=== PATIENT | female | born 1965 | race Caucasian/White ===

== ENCOUNTER 2023-05-17 17:27 | Emergency (ER) | payer BC ==
[~2023-05-17] VITALS: Ht 157.5 cm; Wt 108.8 kg
[~2023-05-17 17:27] MED LIST: FLEXERIL OR; LORTAB 5 OR; NAPROSYN500 MG OR; ZANTAC25 MG OR; no medications
[2023-05-17] MEDS ORDERED: TOPAMAX50 M1 PO (19:43)
[2023-05-17] MEDS ORDERED: PHENTERMINE H37.5 M1 PO (19:46)
[2023-05-17] MEDS ORDERED: LORTAB 1010 MG PO (20:29)
[2023-05-17] MEDS ORDERED: NAPROXEN500 MG PO (20:29)
[2023-05-17 20:46] VITALS: BP 169/84
== END 2023-05-17 21:05 | disposition home or self-care (01) | DRG 563 ==
LOC: ED 17:27
DX: S83.91XA Sprain of unspecified site of right knee, initial encounter (principal); E66.01 Morbid (severe) obesity due to excess calories; X50.0XXA Overexertion from strenuous movement or load, initial encounter; Y92.000 Kitchen of unspecified non-institutional (private) residence as the place of occurrence of the external cause

== ENCOUNTER 2024-06-15 09:49 | Emergency (ER) | payer OTHER ==
[~2024-06-15] VITALS: Ht 160 cm; Wt 74.8 kg
[~2024-06-15 09:49] MED LIST changes: +LORTAB 1010 MG PO; +NAPROXEN500 MG PO; +PHENTERMINE H37.5 M1 PO; +TOPAMAX50 M1 PO
[2024-06-15 09:56] VITALS: BP 120/70
[2024-06-15 10:01] VITALS: BP 109/60
[2024-06-15 10:15] VITALS: BP 111/69
[2024-06-15] MEDS ORDERED: Diph, Acellular Pertussis, Tet 0.5 ML/VIAL (Tdap) SDV IM ONE (10:25)
[2024-06-15 10:30] VITALS: BP 112/72
[2024-06-15 10:34] VITALS: BP 111/69
== END 2024-06-15 10:44 | disposition home or self-care (01) | DRG 605 ==
LOC: ED 09:49
PROC: 0HQFXZZ Repair Right Hand Skin, External Approach (ICD-10-PCS; principal; 2024-06-15)
DX: S61.210A Laceration without foreign body of right index finger without damage to nail, initial encounter (principal); W26.0XXA Contact with knife, initial encounter; Y93.G1 Activity, food preparation and clean up; Y92.009 Unspecified place in unspecified non-institutional (private) residence as the place of occurrence of the external cause

== ENCOUNTER 2024-08-02 18:00 | Emergency (ER) | payer OTHER ==
[~2024-08-02] VITALS: Ht 160 cm; Wt 74.8 kg
[2024-08-02 18:10] VITALS: BP 123/67
[2024-08-02 18:32] VITALS: BP 114/64
[2024-08-02 18:40] LABS: BASO% 0.4 % (0-3); EOS% 1.9 % (0-8); IMMATURE GRANULOCYTES 0.3 % (0.0-5.0); LYMPH% 27.2 % (15-41); MEAN CORPUSCULAR HGB 33.8 pG CALC (26.0-32.0); MEAN CORPUSCULAR HGB CONC 31.7 g/dL CAL (32.0-36.0); MONO% 6.9 % (2-13); NEUT# 4.77 thou/uL (2.00-7.15); NEUT% 63.3 % (42-76); RED BLOOD COUNT 2.81 mill/uL (4.20-5.60)
[2024-08-02 18:41] LABS: HEMOGLOBIN 9.5 g/dl (12.0-16.0); MEAN CELL VOLUME 106.8 fL CALC (80.0-100.0)
[2024-08-02 18:59] LABS: ALBUMIN 3.8 g/dL (3.2-5.0); CREATININE 1.1 mg/dL (0.5-1.0); POTASSIUM 3.1 mmol/l (3.5-5.1); TOTAL PROTEIN 7.1 g/dL (6.3-8.2)
[2024-08-02 19:11] LABS: BILIRUBIN, TOTAL 2.3 mg/dL (0.02-1.3)
[2024-08-02] MEDS ORDERED: POTASSIUM CHLORIDE 20 MEQ/TAB PO ONE (20:05)
[2024-08-02 20:23] VITALS: BP 114/64
== END 2024-08-02 20:23 | disposition home or self-care (01) | DRG 552 ==
LOC: ED 18:00
PROVIDERS: Family Medicine
DX: M54.2 Cervicalgia (principal); S80.211A Abrasion, right knee, initial encounter; S80.02XA Contusion of left knee, initial encounter; S80.01XA Contusion of right knee, initial encounter; E87.6 Hypokalemia; I10 Essential (primary) hypertension; G40.909 Epilepsy, unspecified, not intractable, without status epilepticus; Z96.651 Presence of right artificial knee joint; W01.0XXA Fall on same level from slipping, tripping and stumbling without subsequent striking against object, initial encounter

== ENCOUNTER 2024-12-15 19:00 | Emergency (ER) | payer OTHER ==
[~2024-12-15] VITALS: Ht 160 cm; Wt 77.0 kg
[2024-12-15] VITALS (12 sets, daily range): BP systolic 99–131; BP diastolic 46–70
[2024-12-15] MEDS ORDERED: MORPHINE SULFATE 4 MG/ML VIAL IV STA (19:41)
[2024-12-15] MEDS ORDERED: SODIUM CHLORIDE 0.9% 1,000 ML IV STA (19:41)
[2024-12-15] MEDS ORDERED: Pantoprazole Sodium 40 MG VIAL (Protonix) IV STA (19:41)
[2024-12-15] MEDS ORDERED: PROMETHAZINE HCL 25 MG/ML AMP IV ONE (19:45)
[2024-12-15] MEDS ORDERED: KETOROLAC TROMETHAMINE 30 MG/ML SDV IV ONE (19:45)
[2024-12-15 21:00] LABS: BASO% 0.3 % (0-3); EOS% 2.7 % (0-8); HEMATOCRIT 28.7 % (37.0-47.0); HEMOGLOBIN 8.8 g/dl (12.0-16.0); IMMATURE GRANULOCYTES 0.3 % (0.0-5.0); LYMPH% 24.2 % (15-41); MEAN CELL VOLUME 103.2 fL CALC (80.0-100.0); MEAN CORPUSCULAR HGB 31.7 pG CALC (26.0-32.0); MEAN CORPUSCULAR HGB CONC 30.7 g/dL CAL (32.0-36.0); MONO% 7.2 % (2-13); NEUT# 4.53 thou/uL (2.00-7.15); NEUT% 65.3 % (42-76); RED BLOOD COUNT 2.78 mill/uL (4.20-5.60); RED CELL DISTRI WIDTH 15.3 % (11.5-15.5)
[2024-12-15 21:20] LABS: BILIRUBIN, TOTAL 1.6 mg/dL (0.02-1.3); CREATININE 1.1 mg/dL (0.5-1.0); POTASSIUM 3.4 mmol/l (3.5-5.1)
[2024-12-15 21:22] LABS: TOTAL PROTEIN 5.6 g/dL (6.3-8.2)
[2024-12-15 23:06] LABS: URINE BILIRUBIN - DIPSTICK Negative (NEGATIVE); URINE BLOOD DIPSTICK Small (NEGATIVE); URINE GLUCOSE - DIPSTICK Negative (NEGATIVE); URINE KETONE Negative (NEGATIVE); URINE PH 5.5 (4.5-8.0); URINE PROTEIN - DIPSTICK Negative (NEG-TRACE); URINE SPECIFIC GRAVITY 1.015; URINE UROBILINOGEN - DIPSTICK 0.2 E.U./dL (0.2)
[2024-12-15 23:33] LABS: URINE COLOR Yellow; URINE LEUK ESTERASE Small (NEGATIVE); URINE NITRITE - DIPSTICK Negative (Negative)
[2024-12-15 23:34] LABS: URINE BACTERIA MANY hpf; URINE EPITHELIAL CELLS MODERATE EPI/hpf (0-FEW); URINE WBC 20-50 WBC/hpf (0-5)
[2024-12-15] MEDS ORDERED: BACTRIM DS1 TAB PO (23:45)
[2024-12-15] MEDS ORDERED: SULFAMETHOXAZOLE W/TRIMETHOPRI 1 COMBO TAB PO ONE (23:45)
[2024-12-15] MEDS ORDERED: TORADOL PO (23:45)
[2024-12-16 00:01] VITALS: BP 107/62
[2024-12-16 00:16] VITALS: BP 107/62
== END 2024-12-16 00:19 | disposition home or self-care (01) | DRG 313 ==
LOC: ED 19:00
PROVIDERS: Family Medicine
DX: R07.89 Other chest pain (principal); R10.12 Left upper quadrant pain; N39.0 Urinary tract infection, site not specified; B96.1 Klebsiella pneumoniae [K. pneumoniae] as the cause of diseases classified elsewhere; I10 Essential (primary) hypertension; G40.909 Epilepsy, unspecified, not intractable, without status epilepticus
CPT/HCPCS: J2470; J2550; Q9967